=== PATIENT | male | born 1985 | race African-American/Black ===

== ENCOUNTER 2019-02-02 09:33 | Emergency (ER) | payer SELFPAY ==
[~2019-02-02] VITALS: Ht 182.9 cm; Wt 95.0 kg
[2019-02-02 10:37] LABS: BASOPHILS % 1.2 % (0.0-2.0); EOSINOPHILS % 2.3 % (0.0-5.0); HEMATOCRIT. 36.9 % (42.0-52.0); HEMOGLOBIN. 12.6 g/dL (14.0-18.0); LYMPHOCYTES % 25.5 % (20.0-50.0); MEAN CORPUSCULAR HEMOGLOBIN 30.6 pg (28.0-32.0); MEAN CORPUSCULAR VOLUME 89.5 fL (80.0-94.0); MEAN PLATELET VOLUME 9.3 fl (7.4-10.4); MONOCYTES % 9.9 % (2.0-8.0); NEUTROPHILS % 61.1 % (40.0-76.0); PLATELET 182 x1000/uL (130-400); RED BLOOD CELL COUNT 4.12 mill/uL (4.7-6.1); RED CELL DISTRIBUTION WIDTH 14.4 % (11.6-14.6)
[2019-02-02 10:42] LABS: CHLORIDE 108 mEq/L (98-107)
[2019-02-02 10:46] LABS: ETHANOL BLOOD < 10 mg/dL
[2019-02-02] MEDS ORDERED: DIPHENHYDRAMINE 50MG/ML VIAL ONE (14:11)
[2019-02-02] MEDS ORDERED: LORAZEPAM 2MG/ML CPJ ONE (14:11)
[2019-02-02] MEDS ORDERED: OLANZAPINE 10 MG/VIAL IM ONE ×2 (14:12→15:30)
[2019-02-02 15:23] LABS: CLARITY URINE TURBID (CLEAR); COLOR URINE YELLOW (YELLOW); KETONES URINE NEGATIVE (NEGATIVE); LEUKOCYTE ESTERASE URINE NEGATIVE (NEGATIVE); NITRITE URINE NEGATIVE (NEGATIVE); OCCULT BLOOD URINE NEGATIVE (NEGATIVE); PROTEIN URINE NEGATIVE (NEGATIVE); SPECIFIC GRAVITY URINE 1.021 (1.005-1.030)
[2019-02-02] MEDS ORDERED: DIPHENHYDRAMINE 50MG/ML VIAL IM ONE (15:30)
[2019-02-02] MEDS ORDERED: LORAZEPAM 2MG/ML CPJ IM ONE (15:30)
[2019-02-02 15:43] LABS: *AMPHETAMINES SCREEN URINE PRESUMTIVE POSITIVE (NEGATIVE); *BARBITURATES SCREEN URINE NEGATIVE (NEGATIVE); *BENZODIAZEPINES SCREEN URINE NEGATIVE (NEGATIVE); *COCAINE SCREEN URINE NEGATIVE (NEGATIVE); METHADONE URINE SCREEN NEGATIVE (NEGATIVE); OPIATES URINE SCREEN NEGATIVE (NEGATIVE); PHENCYCLIDINE URINE SCREEN NEGATIVE (NEGATIVE)
[2019-02-02 15:44] LABS: CANNABINOID URINE SCREEN PRESUMTIVE POSITIVE (NEGATIVE)
[2019-02-03 09:49] VITALS: BP 100/66
== END 2019-02-03 14:40 ==
LOC: ER 09:33
DX: M79.605 Pain in left leg (principal); F12.10 Cannabis abuse, uncomplicated; F17.200 Nicotine dependence, unspecified, uncomplicated; F20.9 Schizophrenia, unspecified; Y08.89XA Assault by other specified means, initial encounter; Y93.89 Activity, other specified; Y92.89 Other specified places as the place of occurrence of the external cause; Y99.8 Other external cause status
CPT/HCPCS: 36415; 73620; 80053; 80305; 80320; 81003; 85025; 99285; J1200; J2060; J3490; Z7610; G0480

== ENCOUNTER 2020-04-24 10:22 | Emergency (ER) | payer MEDICAID ==
[~2020-04-24] VITALS: Ht 182.9 cm; Wt 96.0 kg
[2020-04-24 10:25] VITALS: BP 137/81
[2020-04-24] MEDS ORDERED: MAGNESIUM/ALUMINUM HYDROXIDE/SIMETHICONE 30ML UDC PO STA (11:07)
[2020-04-24 11:59] LABS: BASOPHILS % 0.3 % (0.0-2.0); EOSINOPHILS % 0.3 % (0.0-5.0); HEMATOCRIT. 44.7 % (42.0-52.0); HEMOGLOBIN. 15.2 g/dL (14.0-18.0); LYMPHOCYTES % 18.9 % (20.0-50.0); MEAN CORPUSCULAR HEMOGLOBIN 30.3 pg (28.0-32.0); MEAN CORPUSCULAR VOLUME 89.3 fL (80.0-94.0); MEAN PLATELET VOLUME 9.4 fl (7.4-10.4); MONOCYTES % 8.2 % (2.0-8.0); NEUTROPHILS % 72.3 % (40.0-76.0); PLATELET 244 x1000/uL (130-400); RED BLOOD CELL COUNT 5.01 mill/uL (4.7-6.1); RED CELL DISTRIBUTION WIDTH 14.2 % (11.6-14.6)
[2020-04-24 12:06] LABS: CHLORIDE 109 mEq/L (98-107)
== END 2020-04-24 12:00 | disposition left against medical advice (07) ==
LOC: ER 10:32
DX: R10.13 Epigastric pain (principal); R11.2 Nausea with vomiting, unspecified; F12.10 Cannabis abuse, uncomplicated; F20.9 Schizophrenia, unspecified
CPT/HCPCS: 36415; 80053; 85025; 99283